=== PATIENT | female | born 1980 | race Caucasian/White ===

== ENCOUNTER → 2017-03-28 | Outpatient (CLI) | payer OTHER ==
[~2017-03-28] VITALS: Ht 177.8 cm; Wt 93.0 kg
== END | disposition home or self-care (01) ==
LOC: L&DPROCDR 14:05 → LAB 14:05
PROVIDERS: ATTEND Obstetrics & Gynecology Obstetrics
DX: O36.0930 Maternal care for other rhesus isoimmunization, third trimester, not applicable or unspecified (principal); Z67.11 Type A blood, Rh negative; Z3A.30 30 weeks gestation of pregnancy
CPT/HCPCS: 36415; 86886; 90384; 96372; 99281

== ENCOUNTER 2017-06-04 23:36 | Inpatient (IN) | payer OTHER ==
[~2017-06-04] VITALS: Ht 177.8 cm; Wt 96.2 kg
[2017-06-04] MEDS ORDERED: PNV1TABL76 PO (23:47)
[2017-06-05] MEDS ORDERED: LACTATED RINGERS 1,000 ML IV SCH (00:53)
[2017-06-05] MEDS ORDERED: METHYLERGONOVINE MALEATE 0.2 MG/ML IM PRN (01:00)
[2017-06-05] MEDS ORDERED: CARBOPROST TROMETHAMINE 250 MCG/ML AMPUL IM PRN (01:00)
[2017-06-05] MEDS ORDERED: PENICILLIN G POTASSIUM 5 MMU in DEXT 5% WATER 100 ML IV SCH (01:00)
[2017-06-05] MEDS ORDERED: NALOXONE HCL 0.4 MG/ML 1ML VIAL IM PRN (01:00)
[2017-06-05] MEDS ORDERED: MISOPROSTOL 100MCG TABLET VG SCH (01:00)
[2017-06-05] MEDS ORDERED: LIDOCAINE HCL 1% 20ML VIAL (Pyxis) INJ INFIL SCH (01:00)
[2017-06-05] MEDS ORDERED: BUTORPHANOL TARTRATE 2 MG/ML VIAL IV PRN (01:00)
[2017-06-05] MEDS: DEXT 5%/LR + PITOCIN 20UNITS/L 1,000 ML IV SCH ×2 (01:41→02:37)
[2017-06-05] MEDS ORDERED: BENZOCAINE/LANOLIN/ALOE VERA SPRAY TOP PRN (02:45)
[2017-06-05] MEDS ORDERED: RHO(D) IMMUNE GLOBULIN 300 MCG/SYR IM PRN (02:45)
[2017-06-05] MEDS ORDERED: LANOLIN OINT 0.25 GM TUBE TOP PRN (02:45)
[2017-06-05] MEDS: IBUPROFEN 800MG TABLET PO PRN ×4 (03:26→21:19)
[2017-06-05 04:00] VITALS: BP 123/48
[2017-06-05] MEDS ORDERED: PENICILLIN G POTASSIUM 2.5 MMU in DEXTROSE 5% WATER 50 ML IV SCH (04:00)
[2017-06-05 04:29] LABS: INR 0.9; PARTIAL THROMBOPLASTIN TIME 26.4 sec (23.4-31.0); PROTHROMBIN TIME 9.9 sec (9.4-11.6)
[2017-06-05 04:30] VITALS: BP 119/57
[2017-06-05 05:00] VITALS: BP 108/59
[2017-06-05 05:17] LABS: CLARITY URINE TURBID (CLEAR); COLOR URINE RED (YELLOW); KETONES URINE NEGATIVE (NEGATIVE); LEUKOCYTE ESTERASE URINE 1+ (NEGATIVE); NITRITE URINE NEGATIVE (NEGATIVE); OCCULT BLOOD URINE 3+ (NEGATIVE); PROTEIN URINE 1+ (NEGATIVE); SPECIFIC GRAVITY URINE 1.018 (1.005-1.030); UROBILINOGEN URINE 0.2 E.U./dL (0.2-1.0)
[2017-06-05 06:11] LABS: *AMPHETAMINES SCREEN URINE NEGATIVE (NEGATIVE); *BARBITURATES SCREEN URINE NEGATIVE (NEGATIVE); *BENZODIAZEPINES SCREEN URINE NEGATIVE (NEGATIVE); *COCAINE SCREEN URINE NEGATIVE (NEGATIVE); CANNABINOID URINE SCREEN NEGATIVE (NEGATIVE); METHADONE URINE SCREEN NEGATIVE (NEGATIVE); OPIATES URINE SCREEN NEGATIVE (NEGATIVE); PHENCYCLIDINE URINE SCREEN NEGATIVE (NEGATIVE)
[2017-06-05 07:57] VITALS: BP 105/66
[2017-06-05 11:31] LABS: BASOPHILS % 0.4 % (0.0-2.0); EOSINOPHILS % 0.6 % (0.0-5.0); HEMATOCRIT. 40.4 % (36.0-48.0); HEMOGLOBIN. 14.3 g/dL (12.0-16.0); MEAN CORPUSCULAR HEMOGLOBIN 30.4 pg (28.0-32.0); MEAN CORPUSCULAR VOLUME 85.6 fL (81.0-99.0); MONOCYTES % 6.1 % (2.0-8.0); NEUTROPHILS % 74.9 % (40.0-76.0); PLATELET 197 x1000/uL (130-400); RED BLOOD CELL COUNT 4.72 mill/uL (4.2-5.4); RED CELL DISTRIBUTION WIDTH 12.8 % (11.6-14.6)
[2017-06-05 13:18] LABS: HEPATITIS B SURFACE ANTIGEN NEGATIVE
[2017-06-05 14:01] LABS: RUBELLA IGG > 500.0 IU/mL (4.99-10)
[2017-06-05 15:25] VITALS: BP 103/52
[2017-06-05 19:50] VITALS: BP 124/70
[2017-06-06] MEDS: IBUPROFEN 800MG TABLET PO PRN (02:22)
[2017-06-06 04:45] VITALS: BP 101/64
[2017-06-06] MEDS ORDERED: TETANUS, DIPHTHERIA, PERTUSSIS VAC/PF 0.5ML (>7YR OLD) IM ONE (06:00)
[2017-06-06] MEDS ORDERED: FERROUS SULFATE 325MG TABLET PO SCH (07:10)
[2017-06-06 07:58] LABS: BASOPHILS % 0.1 % (0.0-2.0); HEMOGLOBIN. 13.5 g/dL (12.0-16.0); LYMPHOCYTES % 23.8 % (20.0-50.0); MEAN CORPUSCULAR HEMOGLOBIN 30.6 pg (28.0-32.0); MEAN CORPUSCULAR VOLUME 86.2 fL (81.0-99.0); MEAN PLATELET VOLUME 9.5 fl (7.4-10.4); MONOCYTES % 5.5 % (2.0-8.0); NEUTROPHILS % 69.6 % (40.0-76.0); PLATELET 182 x1000/uL (130-400); RED BLOOD CELL COUNT 4.41 mill/uL (4.2-5.4); RED CELL DISTRIBUTION WIDTH 12.7 % (11.6-14.6)
[2017-06-06 08:00] VITALS: BP 100/59
== END 2017-06-06 11:00 | disposition home or self-care (01) | DRG 775 ==
LOC: L&D 23:36 → OBSVTOIN 23:36 → 7EST PP/OB 06-05 03:50
PROVIDERS: ADMIT Obstetrics & Gynecology Obstetrics; ATTEND Obstetrics & Gynecology Obstetrics
PROC: 0HQ9XZZ Repair Perineum Skin, External Approach (ICD-10-PCS; 2017-06-05)
PROC: 10E0XZZ Delivery of Products of Conception, External Approach (ICD-10-PCS; principal; 2017-06-05 01:31)
DX: O77.0 Labor and delivery complicated by meconium in amniotic fluid (principal); O70.0 First degree perineal laceration during delivery; Z37.0 Single live birth; Z3A.39 39 weeks gestation of pregnancy; Z88.6 Allergy status to analgesic agent; Z79.899 Other long term (current) drug therapy
CPT/HCPCS: 36415; 80305; 81001; 85025; 85610; 85730; 86592; 86703; 86762; 86850; 86870; 86886; 86900; 87340; 90384; 90715; J0595; J2540; J2590; J3490; J7060; J7120